=== PATIENT | male | born 1970 | race Caucasian/White ===

== ENCOUNTER 2016-12-05 20:02 | Emergency (ER) | payer MEDICARE | END 2016-12-05 21:12 | disposition home or self-care (01) | LOC: ER 20:02 | DX: K04.7 Periapical abscess without sinus (principal); R50.9 Fever, unspecified; I10 Essential (primary) hypertension; Z88.0 Allergy status to penicillin; F17.210 Nicotine dependence, cigarettes, uncomplicated; Z79.899 Other long term (current) drug therapy | CPT/HCPCS: 96365; 99070; 99282-25; 99283 ==